=== PATIENT | male | born 1970 | race African-American/Black ===

== ENCOUNTER 2019-02-03 14:25 | Emergency (ER) | payer MEDICAID ==
[~2019-02-03] VITALS: Ht 172.7 cm; Wt 81.0 kg
[~2019-02-03 14:25] MED LIST: PROZAC; ZOLOFT
[2019-02-03 14:27] VITALS: BP 136/76
== END 2019-02-03 20:53 | disposition left against medical advice (07) ==
LOC: ER 14:25
DX: R07.89 Other chest pain (principal); Z53.21 Procedure and treatment not carried out due to patient leaving prior to being seen by health care provider

== ENCOUNTER 2019-03-31 18:34 | Emergency (ER) | payer MEDICAID ==
[~2019-03-31] VITALS: Ht 177.8 cm; Wt 82.0 kg
[2019-03-31 20:00] VITALS: BP 110/76
== END 2019-03-31 20:06 | disposition home or self-care (01) ==
LOC: ER 18:34
DX: I83.893 Varicose veins of bilateral lower extremities with other complications (principal); J45.909 Unspecified asthma, uncomplicated; F31.89 Other bipolar disorder; E11.9 Type 2 diabetes mellitus without complications; I10 Essential (primary) hypertension; F10.20 Alcohol dependence, uncomplicated; Y90.0 Blood alcohol level of less than 20 mg/100 ml
CPT/HCPCS: 99283

== ENCOUNTER 2019-07-13 14:52 | Emergency (ER) | payer MEDICAID ==
[~2019-07-13] VITALS: Ht 177.8 cm; Wt 85.0 kg
[2019-07-13 18:20] VITALS: BP 124/82
== END 2019-07-13 18:21 | disposition home or self-care (01) ==
LOC: ER 15:00
DX: F10.129 Alcohol abuse with intoxication, unspecified (principal); Y90.9 Presence of alcohol in blood, level not specified
CPT/HCPCS: 99283

== ENCOUNTER 2019-08-06 18:51 | Emergency (ER) | payer MEDICAID, OTHER ==
[~2019-08-06] VITALS: Ht 170.2 cm; Wt 75.0 kg
[2019-08-06] MEDS ORDERED: SODIUM CHLORIDE 0.9% 1,000 ML IV ONE (21:10)
[2019-08-06] MEDS ORDERED: ONDANSETRON HCL 4MG/2ML INJ IV STA (21:10)
[2019-08-06] MEDS ORDERED: FOLIC ACID 1 MG, THIAMINE HCL 100 MG, MVI, ADULT NO.1 10 ML in DEXTROSE 5% WATER 1,000 ML IV ONE ×4 (21:15)
[2019-08-06 21:45] LABS: CHLORIDE 111 mEq/L (98-107)
[2019-08-06 21:46] LABS: HEMATOCRIT. 28.5 % (42.0-52.0); HEMOGLOBIN. 9.3 g/dL (14.0-18.0); MEAN CORPUSCULAR HEMOGLOBIN 23.7 pg (28.0-32.0); MEAN CORPUSCULAR VOLUME 72.9 fL (80.0-94.0); MEAN PLATELET VOLUME 8.4 fl (7.4-10.4); PLATELET 220 x1000/uL (130-400); RED BLOOD CELL COUNT 3.92 mill/uL (4.7-6.1); RED CELL DISTRIBUTION WIDTH 23.1 % (11.6-14.6)
[2019-08-06 21:54] LABS: CREATINE KINASE 187 IU/L (39-308); METHADONE URINE SCREEN NEGATIVE (NEGATIVE); OPIATES URINE SCREEN NEGATIVE (NEGATIVE)
[2019-08-06 21:55] LABS: *AMPHETAMINES SCREEN URINE NEGATIVE (NEGATIVE); *BARBITURATES SCREEN URINE NEGATIVE (NEGATIVE); *BENZODIAZEPINES SCREEN URINE NEGATIVE (NEGATIVE); *COCAINE SCREEN URINE NEGATIVE (NEGATIVE); PHENCYCLIDINE URINE SCREEN NEGATIVE (NEGATIVE)
[2019-08-06 21:57] LABS: CREATINE KINASE MB FRACTION 1.2 ng/mL (0.5-3.6)
[2019-08-06 21:58] LABS: CANNABINOID URINE SCREEN NEGATIVE (NEGATIVE)
[2019-08-06 22:02] LABS: ETHANOL BLOOD 350 mg/dL
[2019-08-06 22:04] LABS: PLATELET ESTIMATE NORMAL
[2019-08-07 07:00] VITALS: BP 151/85
== END 2019-08-07 07:02 | disposition home or self-care (01) ==
LOC: ER 18:51
DX: S20.212A Contusion of left front wall of thorax, initial encounter (principal); W01.0XXA Fall on same level from slipping, tripping and stumbling without subsequent striking against object, initial encounter; Y93.89 Activity, other specified; Y92.89 Other specified places as the place of occurrence of the external cause; T51.0X1A Toxic effect of ethanol, accidental (unintentional), initial encounter; G92 Toxic encephalopathy; F10.229 Alcohol dependence with intoxication, unspecified; Y90.8 Blood alcohol level of 240 mg/100 ml or more; I10 Essential (primary) hypertension; G40.909 Epilepsy, unspecified, not intractable, without status epilepticus
CPT/HCPCS: 36415; 70450; 71045; 71250; 80053; 80305; 80320; 82550; 82553; 83690; 84443; 84484; 85025; 93005; 96365; 96366; 96375; 99284; J2405; J3411; J3490; J7030; J7070; Z7610; G0480

== ENCOUNTER 2019-08-11 16:46 | Emergency (ER) | payer OTHER ==
[~2019-08-11] VITALS: Ht 177.8 cm; Wt 85.0 kg
[2019-08-11 16:53] VITALS: BP 104/77
[2019-08-11] MEDS ORDERED: IBUPROFEN 800MG TABLET PO ONE (17:30)
== END 2019-08-11 18:32 | disposition home or self-care (01) ==
LOC: ER 17:10
DX: M25.552 Pain in left hip (principal); I10 Essential (primary) hypertension; F20.9 Schizophrenia, unspecified; F10.20 Alcohol dependence, uncomplicated; Y90.0 Blood alcohol level of less than 20 mg/100 ml
CPT/HCPCS: 73502; 99283

== ENCOUNTER 2019-08-28 23:00 | Emergency (ER) | payer MEDICAID, OTHER ==
[~2019-08-28] VITALS: Ht 170.2 cm; Wt 68.0 kg
[2019-08-29] MEDS ORDERED: NITROGLYCERIN 0.4MG TABLET SL SL PRN (00:30)
[2019-08-29] MEDS ORDERED: ASPIRIN 81MG TABLET PO ONE (00:30)
[2019-08-29 00:37] LABS: BASOPHILS % 2.6 % (0.0-2.0); EOSINOPHILS % 0.9 % (0.0-5.0); HEMATOCRIT. 29.3 % (42.0-52.0); HEMOGLOBIN. 9.4 g/dL (14.0-18.0); MEAN CORPUSCULAR HEMOGLOBIN 24.1 pg (28.0-32.0); MEAN CORPUSCULAR VOLUME 74.9 fL (80.0-94.0); MEAN PLATELET VOLUME 8.3 fl (7.4-10.4); MONOCYTES % 11.1 % (2.0-8.0); NEUTROPHILS % 58.4 % (40.0-76.0); PLATELET 131 x1000/uL (130-400); RED BLOOD CELL COUNT 3.91 mill/uL (4.7-6.1)
[2019-08-29 00:43] LABS: CHLORIDE 107 mEq/L (98-107)
[2019-08-29 01:05] LABS: ETHANOL BLOOD 432 mg/dL
[2019-08-29 02:03] LABS: *AMPHETAMINES SCREEN URINE NEGATIVE (NEGATIVE); *BARBITURATES SCREEN URINE NEGATIVE (NEGATIVE); *BENZODIAZEPINES SCREEN URINE NEGATIVE (NEGATIVE); *COCAINE SCREEN URINE NEGATIVE (NEGATIVE)
[2019-08-29 02:04] LABS: CANNABINOID URINE SCREEN NEGATIVE (NEGATIVE); METHADONE URINE SCREEN NEGATIVE (NEGATIVE); OPIATES URINE SCREEN NEGATIVE (NEGATIVE); PHENCYCLIDINE URINE SCREEN NEGATIVE (NEGATIVE)
[2019-08-29 08:42] VITALS: BP 126/88
== END 2019-08-29 08:43 | disposition home or self-care (01) ==
LOC: ER 23:00
DX: R07.89 Other chest pain (principal); I10 Essential (primary) hypertension; F20.9 Schizophrenia, unspecified; F10.20 Alcohol dependence, uncomplicated; Y90.0 Blood alcohol level of less than 20 mg/100 ml
CPT/HCPCS: 36415; 71045; 80053; 80305; 80320; 83880; 84484; 85025; 93005; 99284; Z7610; G0480

== ENCOUNTER 2025-08-05 13:44 | Emergency (ER) | payer MEDICAID, OTHER ==
[~2025-08-05] VITALS: Ht 172.7 cm; Wt 73.0 kg
[2025-08-05 13:46] VITALS: BP 139/81; PULSE 84; RESP 20; TEMP 36.8; O2SAT 100
[2025-08-05] MEDS ORDERED: ACETAMINOPHEN 500MG TABLET PO ONE (14:45)
[2025-08-05] MEDS ORDERED: KETOROLAC 30MG/ML VIAL IM ONE (16:15)
== END 2025-08-05 17:42 | disposition home or self-care (01) ==
LOC: ER 13:44
DX: F10.229 Alcohol dependence with intoxication, unspecified (principal); S22.42XA Multiple fractures of ribs, left side, initial encounter for closed fracture; I10 Essential (primary) hypertension; F20.9 Schizophrenia, unspecified; Z79.899 Other long term (current) drug therapy; Y90.9 Presence of alcohol in blood, level not specified; Y93.55 Activity, bike riding; Y92.89 Other specified places as the place of occurrence of the external cause; Y99.8 Other external cause status
CPT/HCPCS: 71101; 73030; 99284

== ENCOUNTER 2025-09-16 22:13 | Emergency (ER) | payer MEDICAID, OTHER ==
[~2025-09-16] VITALS: Ht 172.7 cm; Wt 66.0 kg
[2025-09-16 22:21] VITALS: O2SAT 96
[2025-09-17 00:07] LABS: HEMATOCRIT. 26.0 % (42.0-52.0); HEMOGLOBIN. 8.1 g/dL (14.0-18.0); RED CELL DISTRIBUTION WIDTH 20.5 % (11.6-14.6)
[2025-09-17] MEDS: SODIUM CHLORIDE 0.9% 1,000 ML IV ONE (00:20)
[2025-09-17 00:23] LABS: MEAN PLATELET VOLUME 6.5 fl (7.4-10.4); PLATELET 360 x1000/uL (130-400); RED BLOOD CELL COUNT 3.47 mill/uL (4.7-6.1)
[2025-09-17 00:24] LABS: CREATININE 0.9 mg/dL (0.6-1.3); UREA NITROGEN BLOOD 5 mg/dL (9-23)
[2025-09-17 00:25] LABS: TROPONIN I HIGH SENSITIVITY 6 ng/L (3.0-53)
[2025-09-17 03:00] VITALS: BP 118/70; PULSE 64; RESP 14; TEMP 36.8; O2SAT 98
[2025-09-17 12:26] LABS: BAND% 12.0 % (1.0-6.0); EOSINOPHILS % MANUAL 2.0 % (0.0-5.0); LYMPHOCYTES % MANUAL 44.0 % (20.0-50.0); MONOCYTES % MANUAL 11.0 % (2.0-8.0); NEUTROPHILS % MANUAL 31.0 % (45.0-75.0); PLATELET ESTIMATE NORMAL
== END 2025-09-17 03:40 | disposition short-term general hospital (02) ==
LOC: ER 22:13 → CMPBEDREQ 09-17 07:26
DX: T51.0X1A Toxic effect of ethanol, accidental (unintentional), initial encounter (principal); D64.9 Anemia, unspecified; F20.9 Schizophrenia, unspecified; F10.229 Alcohol dependence with intoxication, unspecified; Z86.73 Personal history of transient ischemic attack (TIA), and cerebral infarction without residual deficits; Y92.89 Other specified places as the place of occurrence of the external cause; Y90.8 Blood alcohol level of 240 mg/100 ml or more
CPT/HCPCS: 80048; 80320; 85025; 84484; 36415; 71045; 93005; 96360; 99285; 70450; J7030; G0480

== ENCOUNTER 2025-11-06 18:03 | Emergency (ER) | payer OTHER ==
[~2025-11-06] VITALS: Ht 172.7 cm; Wt 69.0 kg
[2025-11-06 18:05] VITALS: O2SAT 99
[2025-11-06 19:27] VITALS: BP 133/92; PULSE 83; RESP 16
[2025-11-06] MEDS: KETOROLAC 30MG/ML VIAL IM ONE (19:27)
[2025-11-06 19:28] VITALS: TEMP 98.4
[2025-11-06] MEDS: ACETAMINOPHEN 325MG TABLET PO ONE (19:28)
[2025-11-06] MEDS ORDERED: ACET-2708 MT (19:45)
== END 2025-11-06 20:55 | disposition home or self-care (01) ==
LOC: ER 18:03
DX: M79.652 Pain in left thigh (principal); F10.90 Alcohol use, unspecified, uncomplicated; F20.9 Schizophrenia, unspecified; I10 Essential (primary) hypertension; Y90.9 Presence of alcohol in blood, level not specified
CPT/HCPCS: 99283; 73502; 96372; J1885